=== PATIENT | male | born 1945 | race Caucasian/White ===

== ENCOUNTER 2021-11-21 10:38 | Observation (INO) | payer MEDICARE, OTHER ==
[~2021-11-21] VITALS: Ht 170.2 cm; Wt 86.2 kg
[2021-11-21 10:59] LABS: BASOPHILS # (AUTO) 0.1 (0.0-0.1); BASOPHILS % 0.8 % (0.0-1.0); EOSINOPHILS % 0.3 % (0.0-6.0); HEMATOCRIT 43.7 % (38.2-49.6); HEMOGLOBIN 14.4 g/dL (14.0-18.0); LYMPHOCYTES # (AUTO) 1.3 (1.0-3.2); MEAN CORPUSCULAR HEMOGLOBIN 31.1 pg (28-32); MEAN CORPUSCULAR VOLUME 94.4 fL (81-99); MONOCYTES # (AUTO) 0.5 (0.2-0.8); MONOCYTES % 6.1 % (4.4-11.3); NEUTROPHILS # (AUTO) 5.7 (2.1-6.9); NEUTROPHILS % 75.5 % (38.7-80.0); PLATELET COUNT 246 x10e3/uL (140-360); RED BLOOD COUNT 4.63 x10e6/uL (4.3-5.7); RED CELL DISTRIBUTION WIDTH 12.8 % (11.7-14.4)
[2021-11-21 11:17] LABS: INR 1.13; PROTHROMBIN TIME 15.3 seconds (11.9-14.5)
[2021-11-21 11:27] LABS: ALBUMIN 3.8 g/dL (3.5-5.0); ALBUMIN/GLOBULIN RATIO 1.2 (0.8-2.0); ANION GAP 17.3 mmol/L (8-16); CALCIUM 8.9 mg/dL (8.4-10.2); CREATININE, SERUM 0.75 mg/dL (0.72-1.25); POTASSIUM 4.3 mmol/L (3.5-5.1)
[2021-11-21 11:46] LABS: SALICYLATE < 5.0 mg/dL (0-30)
[2021-11-21 12:03] LABS: AMPHETAMINES SCREEN,URINE NEGATIVE (NEGATIVE); BENZODIAZEPINES SCREEN,URINE NEGATIVE (NEGATIVE); CLARITY,URINE CLEAR (CLEAR); COLOR,URINE YELLOW (YELLOW); KETONES,URINE 2+ (NEGATIVE); LEUKOCYTE ESTERASE ,URINE NEGATIVE (NEGATIVE); NITRITE,URINE NEGATIVE (NEGATIVE); PHENCYCLIDINE SCREEN,URINE NEGATIVE (NEGATIVE); PROTEIN,URINE DIPSTICK NEGATIVE (NEGATIVE); URINE UROBILINOGEN 0.2 mg/dL (0.2 - 1)
[2021-11-21 12:36] LABS: RBC,URINE 0-5 /HPF (0-5)
[2021-11-21 12:37] LABS: BACTERIA,URINE FEW /HPF; EPITHELIAL CELLS,URINE FEW /LPF
[2021-11-21 14:02] VITALS: BP 147/63
[2021-11-21 14:09] VITALS: BP 123/66
[2021-11-21] MEDS ORDERED: ALBUTEROL/IPRATROPIUM 3 ML NEB ONE (14:52)
[2021-11-21 15:25] VITALS: BP 147/63
[2021-11-21 16:58] VITALS: BP 147/63
[2021-11-21 20:00] VITALS: BP 123/70
[2021-11-22] VITALS: BP 133/69
[2021-11-22 04:00] VITALS: BP 121/48
[2021-11-22] MEDS ORDERED: ONDANSETRON HCL INJ 2MG/ML 2ML 2 MG/ML VIAL IV PRN (07:30)
[2021-11-22] MEDS ORDERED: DOCUSATE SODIUM 100 MG CAP PO PRN (07:30)
[2021-11-22] MEDS ORDERED: MELATONIN 3 MG TAB PO PRN (07:30)
[2021-11-22] MEDS ORDERED: CEFTRIAXONE 1 GM in SODIUM CHLORIDE 0.9% 50ML 50 ML IV SCH ×2 (07:30→09:00)
[2021-11-22] MEDS ORDERED: ACETAMINOPHEN 325 MG TAB PO PRN (07:30)
[2021-11-22 07:38] VITALS: BP 135/64
[2021-11-22 07:40] VITALS: BP 135/64
[2021-11-22] MEDS ORDERED: DEXTROSE 50% SYRINGE 50 ML IV PRN (07:45)
[2021-11-22] MEDS ORDERED: SODIUM CHLORIDE 0.9% 250ML 250 ML ONE (08:02)
[2021-11-22] MEDS ORDERED: MULTIVITAMINS/MINERALS TAB PO SCH (09:00)
[2021-11-22] MEDS ORDERED: INSULIN REGULAR, HUMAN 100 UNIT/1 ML SQ SCH (11:30)
[2021-11-22 11:43] VITALS: BP 129/69
[2021-11-22] MEDS ORDERED: CEPHALEXIN500 MG PO (12:17)
== END 2021-11-22 14:01 | disposition home or self-care (01) ==
LOC: EDBD 10:38 → ER 11:23 → ERHOLD 13:01 → MED/SURG2 13:52
PROVIDERS: ADMIT Internal Medicine; ATTEND Internal Medicine
DX: F03.90 Unspecified dementia, unspecified severity, without behavioral disturbance, psychotic disturbance, mood disturbance, and anxiety (principal); W01.0XXA Fall on same level from slipping, tripping and stumbling without subsequent striking against object, initial encounter; N39.0 Urinary tract infection, site not specified; E66.9 Obesity, unspecified; Z68.29 Body mass index [BMI] 29.0-29.9, adult; Z20.822 Contact with and (suspected) exposure to COVID-19; E66.3 Overweight
CPT/HCPCS: 36415 ×2; 70450; 71045; 80053; 80061; 80307; 80329 ×2; 81001; 82948; 83036; 84484; 85025; 85610; 93005; 94799; 99284; G0378 ×2; J0696; J7050; U0002